=== PATIENT | female | born 1970 | race Caucasian/White ===

== ENCOUNTER 2021-04-06 06:15 | Day surgery (SDC) | payer BC ==
[2021-04-05 11:06] VITALS: BMI 19.5
[2021-04-06 12:16] VITALS: TEMP 97.6
[2021-04-06 14:22] VITALS: PULSE 61
[2021-04-06 17:36] VITALS: BP 92/56
== END 2021-04-06 15:35 | disposition home or self-care (01) ==
LOC: FASU 06:15
PROVIDERS: ATTEND Plastic Surgery
PROC: 0HPU0JZ Removal of Synthetic Substitute from Left Breast, Open Approach (ICD-10-PCS; principal; 2021-04-06)
PROC: 0HRU0JZ Replacement of Left Breast with Synthetic Substitute, Open Approach (ICD-10-PCS; 2021-04-06)
PROC: 0HQU0ZZ Repair Left Breast, Open Approach (ICD-10-PCS; 2021-04-06)
PROC: 0HBU0ZZ Excision of Left Breast, Open Approach (ICD-10-PCS; 2021-04-06)
PROC: 0JX60ZB Transfer Chest Subcutaneous Tissue and Fascia with Skin and Subcutaneous Tissue, Open Approach (ICD-10-PCS; 2021-04-06)
PROC: 0JX60ZB Transfer Chest Subcutaneous Tissue and Fascia with Skin and Subcutaneous Tissue, Open Approach (ICD-10-PCS; 2021-04-06)
PROC: 0HPU0JZ Removal of Synthetic Substitute from Left Breast, Open Approach (ICD-10-PCS; 2021-04-06)
PROC: 0HRU0JZ Replacement of Left Breast with Synthetic Substitute, Open Approach (ICD-10-PCS; 2021-04-06)
DX: M95.4 Acquired deformity of chest and rib (principal); Z90.13 Acquired absence of bilateral breasts and nipples; N65.1 Disproportion of reconstructed breast; Z85.3 Personal history of malignant neoplasm of breast; T85.41XA Breakdown (mechanical) of breast prosthesis and implant, initial encounter; Y83.8 Other surgical procedures as the cause of abnormal reaction of the patient, or of later complication, without mention of misadventure at the time of the procedure; Y92.9 Unspecified place or not applicable
CPT/HCPCS: 14001; 19316; 19342; 19371; L8600; 88300-TC; 88305-TC; 94760